=== PATIENT | female | born 2000 | race Caucasian/White ===

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

== ENCOUNTER 2021-08-20 21:14 | Outpatient (CLI) | payer OTHER ==
[2021-08-20 22:09] VITALS: BP 132/70; PULSE 97; RESP 18; TEMP 98.3
--- NOTE | 2021-08-21 06:44 | P.MSEPDOC ---
Presenting Problems - Arrival Data Date of Arrival on Unit: 08/20/21 Time of Arrival on Unit: 21:15 Mode of Transport: Ambulatory - Complaint OB-Reason for Admission/Chief Complaint: Vaginal Bleeding Comment: Pt presents to triage with c/o bleeding that started after having intercourse approx 30 min ago. Pt states she noticed bright red blood on her legs. Pt states she did not have a pad at home but that she put toilet paper in her underwear to wear into triage. Pt states it was kind of similar "to a period" Medical History - Information : 1 Para: 0 Term: 0 : 0 Abortions: Spontaneous or Elective: 0 Number of Living Children: 0 - Gestational Age Gestational Age by CHRIS (wks/days): 20 Weeks and 3 Days Review of Systems - Review of Systems Constitutional: No problems Breast: No problems ENT: No problems Cardiovascular: No problems Respiratory: No problems Gastrointestinal: No problems Genitourinary: No problems Musculoskeletal: No problems Neurological: No problems Skin: No problems Vital Signs - Temperature Temperature: 98.3 F Temperature Source: Temporal Artery Scan - Pulse Pulse Oximetery Pulse Rate: 97 Pulse Assessment Method: Pulse Oximetry - Respirations Respiratory Rate: 18 Oxygen Delivery Method: Room Air O2 Sat by Pulse Oximetry: 100 - Blood Pressure Right Arm Blood Pressure: 132/70 Blood Pressure Mean: 90 Blood Pressure Source: Automatic Cuff Physician Notification - Physician Notified Physician Notified Date: 08/20/21 Physician Notified Time: 21:26 Physician: Ayaz Elena New Order Received: Yes - Notification Comment Comment: RN spoke with Dr. Elena regarding DOM patient in triage with c/o bleeding after having intercourse approx. 30 minutes prior to arriving. Reported maternal vital signs, FHR 141-146 via handheld doppler, no contx, and a scant amount of bright red blood noted on toilet paper that patient wore into triage. Per Dr. Elena, RN to educate patient nothing in vagina until patient follows up with her OB, RN to discharge patient home with instructions. Maternal Triage Index - Maternal Triage Index Presenting for scheduled procedure w/no complaint: No - Stat/Priority 1 Stat Priority 1: No - Urgent/Priority 2 Urgent Priority 2: No - Prompt/Priority 3 Prompt Priority 3: No - Non-Urgent/Priority 4 Non-Urgent Priority 4: Yes Criteria Met for Priority 4: Pt presents to triage with c/o bleeding that started after having intercourse approx 30 min ago. Pt states she noticed bright red blood on her legs. Pt states she did not have a pad at home but that she put toilet paper in her underwear to wear into triage. Pt states it was kind of similar "to a period" Disposition - Disposition OB Disposition: Discharge to home, Written follow up instructions reviewed Discharge Date: 08/20/21 Discharge Time: 21:40 I agree with the RN Medical Screening Exam: Yes Case reviewed; plan agreed upon as documented in EMR&OBIX.: Yes Diagnosis: SPOTTING COMPLICATING , SECOND TRIMESTER (Patient presents to labor and delivery was bonding after intercourse. Patient's care is with another physician and no records are available to us this time. heart tones are auscultated in the normal range. This most likely is thought to be cervical in nature and therefore patient is discharged home follow up with her primary physician.)
== END 2021-08-20 21:40 | disposition home or self-care (01) ==
LOC: FBPOP 21:14
PROVIDERS: ATTEND Obstetrics & Gynecology
DX: O26.852 Spotting complicating pregnancy, second trimester (principal); Z3A.20 20 weeks gestation of pregnancy
CPT/HCPCS: 99213